=== PATIENT | male | born 1980 | race Caucasian/White ===

== ENCOUNTER 2023-12-25 15:03 | Inpatient (IN) | payer SELFPAY ==
[~2023-12-25] VITALS: Ht 172.7 cm; Wt 68.0 kg
[2023-12-25 15:55] VITALS: TEMP 97.5
[2023-12-25 16:25] LABS: BASOPHILS % 0.2 % (0.0-1.0); EOSINOPHILS % 0.1 % (0.0-6.0); HEMATOCRIT 43.5 % (38.2-49.6); HEMOGLOBIN 14.6 g/dL (14.0-18.0); LYMPHOCYTES # (AUTO) 1.1 (1.0-3.2); LYMPHOCYTES % 10.3 % (18.0-39.1); MEAN CORPUSCULAR HEMOGLOBIN 29.7 pg (28-32); MEAN CORPUSCULAR HGB CONC 33.6 g/dL (31-35); MEAN CORPUSCULAR VOLUME 88.4 fL (81-99); MONOCYTES # (AUTO) 1.1 (0.2-0.8); MONOCYTES % 10.5 % (4.4-11.3); NEUTROPHILS % 78.6 % (38.7-80.0); PLATELET COUNT 191 x10e3/uL (140-360); RED BLOOD COUNT 4.92 x10e6/uL (4.3-5.7); RED CELL DISTRIBUTION WIDTH 12.5 % (11.7-14.4); WHITE BLOOD COUNT 10.18 x10e3/uL (4.8-10.8)
[2023-12-25 16:34] LABS: INR 0.99; PROTHROMBIN TIME 13.6 seconds (11.9-14.5)
[2023-12-25 16:35] LABS: PARTIAL THROMBOPLASTIN TIME 29.2 seconds (23.8-35.5)
[2023-12-25 16:41] LABS: ALANINE AMINOTRANSFERASE 18 IU/L (0-55); ALBUMIN 2.8 g/dL (3.5-5.0); ALBUMIN/GLOBULIN RATIO 0.7 (0.8-2.0); ALKALINE PHOSPHATASE 193 IU/L (40-150); ANION GAP 16.9 mmol/L (8-16); BILIRUBIN,TOTAL 1.4 mg/dL (0.2-1.2); BLOOD UREA NITROGEN 18 mg/dL (7-26); BUN/CREATININE RATIO 14 (6-25); CALCIUM 8.9 mg/dL (8.4-10.2); CARBON DIOXIDE 24 mmol/L (22-29); CHLORIDE 97 mmol/L (98-107); COVID 19 ANTIGEN NOT DETECTED (NEGATIVE); CREATININE, SERUM 1.26 mg/dL (0.72-1.25); EST GLOMERULAR FILTRATION RATE 73 ML/MIN (>=60); POTASSIUM 3.9 mmol/L (3.5-5.1); SODIUM 134 mmol/L (136-145)
[2023-12-25 16:42] LABS: GLUCOSE 420 mg/dL (74-118)
[2023-12-25] MEDS: Morphine 4mg INJECTION 4 MG/ML INJ IV ONE (16:52)
[2023-12-25] MEDS: SODIUM CHLORIDE 0.9% 1000ML 1,000 ML IV STA (16:55)
[2023-12-25] MEDS ORDERED: SODIUM CHLORIDE 0.9% 1000ML 1,000 ML IV STA (17:14)
[2023-12-25] MEDS ORDERED: Morphine 4mg INJECTION 4 MG/ML INJ IV PRN (17:15)
[2023-12-25] MEDS ORDERED: ONDANSETRON HCL INJ 2MG/ML 2ML 2 MG/ML VIAL IV PRN (17:15)
[2023-12-25] MEDS ORDERED: SODIUM CHLORIDE FLUSH 10 ML SYR INJ PRN (17:15)
[2023-12-25] MEDS: Vancomycin IV 1 GM in SODIUM CHLORIDE 0.9% 250ML 250 ML IV ONE (17:40)
[2023-12-25] MEDS: INSULIN REGULAR, HUMAN 100 UNIT/1 ML SQ ONE (17:46)
[2023-12-25 18:00] VITALS: PULSE 94; RESP 20
[2023-12-25] MEDS ORDERED: FUROSEMIDE40 MG PO (20:18)
[2023-12-25] MEDS ORDERED: SPIRONOLACTONE25 MG PO (20:18)
[2023-12-25] MEDS ORDERED: LISINOPRIL5 MG PO (20:18)
[2023-12-25] MEDS ORDERED: ASPIRIN81 MG PO (20:18)
[2023-12-25] MEDS ORDERED: CARVEDILOL6.25 MG PO (20:18)
[2023-12-25] MEDS ORDERED: ATORVASTATIN CA40 MG PO (20:18)
[2023-12-25] MEDS ORDERED: NOVOLIN 70100 UNIT/3 SC (20:18)
[2023-12-25 20:20] VITALS: BP_SYST 118; BP_SYST 126; BP_DIAS 81; BP_DIAS 90; PULSE 89; PULSE 94; RESP 16; RESP 18; TEMP 97.7; O2SAT 99
[2023-12-25 20:22] VITALS: BP 126/81; PULSE 89; RESP 18; TEMP 97.7; O2SAT 99
[2023-12-25] MEDS ORDERED: DEXTROSE 50% SYRINGE 50 ML IV PRN (20:45)
[2023-12-25] MEDS: INSULIN GLARGINE 100 UNITS/ML VIAL SQ SCH (21:16)
[2023-12-25] MEDS: INSULIN LISPRO 100 UNIT/1 ML 3ML VIAL SQ ONE (21:16)
[2023-12-26] VITALS (9 sets, daily range): BP systolic 100–128; BP diastolic 71–89; PULSE 78–96; RESP 14–18; TEMP 97.7–98.1; O2SAT 93–98
[2023-12-26] MEDS ORDERED: ACETAMINOPHEN 325 MG TAB PO PRN (01:00)
[2023-12-26] MEDS ORDERED: DIPHENHYDRAMINE HCL 25 MG CAP PO PRN (01:00)
[2023-12-26] MEDS ORDERED: ALBUTEROL/IPRATROPIUM 3 ML NEB NEB PRN (01:00)
[2023-12-26] MEDS ORDERED: SIMETHICONE 80 MG CHEW PO PRN (01:00)
[2023-12-26] MEDS ORDERED: MELATONIN 5 MG TABLET PO PRN (01:00)
[2023-12-26] MEDS ORDERED: HYDRALAZINE HCL 20 MG/ML VIAL IV PRN (01:00)
[2023-12-26] MEDS ORDERED: POTASSIUM CHLORIDE 20 MEQ TAB CR PO PRN (01:00)
[2023-12-26] MEDS ORDERED: BENZONATATE 100 MG CAP PO PRN (01:00)
[2023-12-26] MEDS ORDERED: LIDOCAINE 4% PATCH TP PRN (01:00)
[2023-12-26] MEDS ORDERED: DEXTROSE 50% SYRINGE 50 ML IV PRN (01:00)
[2023-12-26] MEDS ORDERED: DOCUSATE SODIUM 100 MG CAP PO PRN (01:00)
[2023-12-26] MEDS ORDERED: ONDANSETRON HCL INJ 2MG/ML 2ML 2 MG/ML VIAL IV PRN (01:00)
[2023-12-26] MEDS: CARVEDILOL 3.125 MG TAB PO SCH (01:53)
[2023-12-26 06:09] LABS: ANION GAP 12.4 mmol/L (8-16); CALCIUM 8.4 mg/dL (8.4-10.2); CHOL/HDL RATIO 5.3 (3.9-4.7); CREATININE, SERUM 1.08 mg/dL (0.72-1.25)
[2023-12-26 06:13] LABS: POTASSIUM 3.4 mmol/L (3.5-5.1)
[2023-12-26 06:31] LABS: THYROID STIMULATING HORMONE 1.605 uIU/mL (0.350-4.940)
[2023-12-26] MEDS: ATORVASTATIN 40 MG TAB PO SCH (10:44)
[2023-12-26] MEDS: FUROSEMIDE 40 MG TAB PO SCH (10:44)
[2023-12-26] MEDS: PANTOPRAZOLE SOD 40 MG TABEC PO SCH (10:44)
[2023-12-26] MEDS: ASPIRIN 81 MG CHEW TAB PO SCH (10:44)
[2023-12-26] MEDS: LISINOPRIL 2.5 MG TAB PO SCH (10:45)
[2023-12-26] MEDS: INSULIN LISPRO 100 UNIT/1 ML 3ML VIAL SQ SCH (10:53)
[2023-12-26] MEDS: Vancomycin IV 1 GM in SODIUM CHLORIDE 0.9% 250ML 250 ML IV SCH (11:22)
[2023-12-26] MEDS: SPIRONOLACTONE 25 MG TAB PO SCH (13:58)
[2023-12-26] MEDS: ENOXAPARIN SOD INJ 40 MG/0.4 ML SYR SC SCH (17:22)
[2023-12-27] VITALS (7 sets, daily range): BP systolic 96–118; BP diastolic 62–74; PULSE 79–100; RESP 16–18; TEMP 97.7–98.5; O2SAT 95–98
[2023-12-27 06:02] LABS: BASOPHILS % 0.2 % (0.0-1.0); EOSINOPHILS # (AUTO) 0.1 (0.0-0.4); EOSINOPHILS % 0.7 % (0.0-6.0); HEMATOCRIT 39.8 % (38.2-49.6); HEMOGLOBIN 12.9 g/dL (14.0-18.0); LYMPHOCYTES # (AUTO) 1.6 (1.0-3.2); LYMPHOCYTES % 13.8 % (18.0-39.1); MEAN CORPUSCULAR HGB CONC 32.4 g/dL (31-35); MEAN CORPUSCULAR VOLUME 89.4 fL (81-99); MONOCYTES # (AUTO) 1.1 (0.2-0.8); MONOCYTES % 9.8 % (4.4-11.3); NEUTROPHILS # (AUTO) 8.8 (2.1-6.9); PLATELET COUNT 208 x10e3/uL (140-360); RED BLOOD COUNT 4.45 x10e6/uL (4.3-5.7); RED CELL DISTRIBUTION WIDTH 12.5 % (11.7-14.4); WHITE BLOOD COUNT 11.68 x10e3/uL (4.8-10.8)
[2023-12-27 06:34] LABS: ANION GAP 12.4 mmol/L (8-16); CALCIUM 8.1 mg/dL (8.4-10.2); CREATININE, SERUM 1.17 mg/dL (0.72-1.25); MAGNESIUM 1.9 MG/DL (1.3-2.1)
[2023-12-27 06:37] LABS: POTASSIUM 3.4 mmol/L (3.5-5.1)
[2023-12-27] MEDS: CLINDAMYCIN PHOS 900MG/ 50ML 50 ML IV SCH (14:12)
[2023-12-27] MEDS: KETOROLAC TROMETHAMINE 30 MG/ML VIAL IV SCH (16:59)
[2023-12-27] MEDS: INSULIN GLARGINE 100 UNITS/ML VIAL SQ SCH (23:34)
[2023-12-28] VITALS (10 sets, daily range): BP systolic 104–120; BP diastolic 58–85; PULSE 77–89; RESP 16–19; TEMP 97.5–98.2; O2SAT 96–100
[2023-12-28 05:56] LABS: BASOPHILS % 0.2 % (0.0-1.0); EOSINOPHILS # (AUTO) 0.1 (0.0-0.4); HEMATOCRIT 39.2 % (38.2-49.6); HEMOGLOBIN 12.4 g/dL (14.0-18.0); LYMPHOCYTES # (AUTO) 1.4 (1.0-3.2); MEAN CORPUSCULAR HEMOGLOBIN 28.9 pg (28-32); MEAN CORPUSCULAR HGB CONC 31.6 g/dL (31-35); MEAN CORPUSCULAR VOLUME 91.4 fL (81-99); MONOCYTES # (AUTO) 1.1 (0.2-0.8); MONOCYTES % 10.8 % (4.4-11.3); NEUTROPHILS # (AUTO) 7.2 (2.1-6.9); NEUTROPHILS % 73.2 % (38.7-80.0); PLATELET COUNT 227 x10e3/uL (140-360); RED BLOOD COUNT 4.29 x10e6/uL (4.3-5.7); RED CELL DISTRIBUTION WIDTH 12.7 % (11.7-14.4); WHITE BLOOD COUNT 9.82 x10e3/uL (4.8-10.8)
[2023-12-28 06:30] LABS: ANION GAP 11.6 mmol/L (8-16); CALCIUM 8.2 mg/dL (8.4-10.2); CREATININE, SERUM 1.4 mg/dL (0.72-1.25); POTASSIUM 3.6 mmol/L (3.5-5.1)
[2023-12-28] MEDS: SODIUM CHLORIDE 0.9% 250ML 250 ML ONE (10:04)
[2023-12-28] MEDS ORDERED: TRAMADOL HCL 50 MG TAB PO PRN (15:00)
[2023-12-28] MEDS: FUROSEMIDE INJ 10 MG/ML 4 ML VIAL IV ONE (16:12)
[2023-12-28] MEDS: INSULIN GLARGINE 100 UNITS/ML VIAL SQ SCH (21:40)
[2023-12-29 00:05] VITALS: BP 105/68; PULSE 77; RESP 18; TEMP 98.2; O2SAT 96
[2023-12-29 04:08] VITALS: BP 108/79; PULSE 80; RESP 20; TEMP 98.6; O2SAT 97
[2023-12-29 06:34] VITALS: PULSE 72; RESP 20; O2SAT 99
[2023-12-29 07:30] VITALS: BP 104/71; PULSE 79; RESP 20; TEMP 98.6; O2SAT 99
[2023-12-29 07:54] LABS: ANION GAP 12.4 mmol/L (8-16); CALCIUM 8.4 mg/dL (8.4-10.2); CREATININE, SERUM 1.12 mg/dL (0.72-1.25)
[2023-12-29 07:58] LABS: POTASSIUM 3.4 mmol/L (3.5-5.1)
[2023-12-29 08:42] VITALS: BP 104/71; PULSE 70; RESP 20; TEMP 98.3; O2SAT 95
[2023-12-29] MEDS: CARVEDILOL 3.125 MG TAB PO SCH (09:33)
[2023-12-29 12:04] VITALS: BP 116/84; PULSE 80; RESP 18; TEMP 97.3; O2SAT 96
== END 2023-12-29 14:45 | disposition left against medical advice (07) | DRG 603 ==
LOC: ER 16:20 → ERHOLD 17:12 → MED/SURG3 18:09 → OBSVTOIN 12-26 13:20
PROVIDERS: ADMIT Internal Medicine; ATTEND Internal Medicine
DX: L03.115 Cellulitis of right lower limb (principal); N17.9 Acute kidney failure, unspecified; I50.42 Chronic combined systolic (congestive) and diastolic (congestive) heart failure; I11.0 Hypertensive heart disease with heart failure; E11.65 Type 2 diabetes mellitus with hyperglycemia; Z79.4 Long term (current) use of insulin; E86.0 Dehydration; I25.10 Atherosclerotic heart disease of native coronary artery without angina pectoris; Z95.1 Presence of aortocoronary bypass graft; Z95.810 Presence of automatic (implantable) cardiac defibrillator; E78.5 Hyperlipidemia, unspecified; F17.200 Nicotine dependence, unspecified, uncomplicated; Z53.29 Procedure and treatment not carried out because of patient's decision for other reasons; Z91.199 Patient's noncompliance with other medical treatment and regimen due to unspecified reason; Z11.52 Encounter for screening for COVID-19; Z79.899 Other long term (current) drug therapy; Z79.82 Long term (current) use of aspirin
CPT/HCPCS: 0223U; 36415; 71045; 80048; 80053; 80061; 82948; 83036; 83735; 84443; 85025; 85610; 85730; 87040; 93971; 94799; 96372; 99252; 99284; G0378; J0696; J1650; J1815; J1885; J1940; J7030; J7050